=== PATIENT | female | born 2000 | race Caucasian/White ===

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

== ENCOUNTER 2019-03-15 09:36 | Day surgery (SDC) | payer SELFPAY ==
[~2019-03-15] VITALS: Ht 152.4 cm; Wt 41.4 kg
[2019-03-15] VITALS (8 sets, daily range): BP systolic 95–105; BP diastolic 56–69
[~2019-03-15 09:36] MED LIST: NITR-65 PO
[2019-03-15] MEDS ORDERED: ONDANSETRON 4 MG/2 ML (SDV) Z0FRAN IVP ONE (09:45)
[2019-03-15] MEDS ORDERED: NS IV 1000 ML 1,000 ML IV SCH ×2 (09:45→15:00)
[2019-03-15] MEDS ORDERED: fentaNYL INJECTION 100 MCG/2 ML AMP IVP ONE ×5 (09:45→17:30)
--- NOTE | 2019-03-15 09:47 | ED Abdominal Pain ---
General Stated Complaint: ABD PAIN Source of Information: Patient, Family History of Present Illness Date Seen by Provider: Mar 15, 2019 Time Seen by Provider: 09:46 Initial Comments This 18-year-old white female presents complaining of right lower quadrant pain that began last night. Patient had associated nausea without vomiting. Patient states pain is sharp in nature and severe in intensity. Patient has had ovarian cysts in the past but this is a different type of pain. Patient denies associated headache and stiff neck photophobia, cough shortness of breath or chest wall discomfort, pressure type chest pain or palpitations, diarrhea, dysuria frequency or flank pain. Her last period was 23 February. Allergies and Home Medications Allergies Coded Allergies: No Known Drug Allergies (Unverified , 08/30/18) Home Medications Nitrofurantoin Monohyd/M-Cryst 100 Mg Capsule, 100 MG PO BID Prescribed by: ANU RUVALCABA on 08/30/181944 Patient Home Medication List Home Medication List Reviewed: Yes Review of Systems Review of Systems Constitutional: no symptoms reported EENTM: No Symptoms Reported Respiratory: No Symptoms Reported; Denies Cough Cardiovascular: Denies Chest Pain Gastrointestinal: See HPI, Abdominal Pain, Nausea Genitourinary: Denies Frequency, Denies Flank Pain Musculoskeletal: No back pain Skin: No rash Psychiatric/Neurological: No Symptoms Reported Endocrine: No Symptoms Reported Hematologic/Lymphatic: No Symptoms Reported Past Enkabgm-Wxedwl-Hwgpes Hx Past Med/Social Hx: Reviewed Nursing Past Med/Soc Hx Patient Social History Drug of Choice: THC, XANAX Type Used: Cigarettes 2nd Hand Smoke Exposure: Yes Recent Foreign Travel: No Contact w/Someone Who Travel: No Recent Hopitalizations: No Immunizations Up To Date Tetanus Booster (TDap): Unknown Seasonal Allergies Seasonal Allergies: No Past Medical History Surgeries: No Respiratory: No Cardiac: No Neurological: No Genitourinary: No Gastrointestinal: No Musculoskeletal: No Endocrine: No HEENT: No Cancer: No Psychosocial: Yes ADD/ADHD, Anxiety, Bipolar, Depression Integumentary: No Blood Disorders: No Physical Exam Vital Signs Vital Signs - First Documented 03/15/19 09:38 Temp 97.8 Pulse 120 Resp 18 B/P (MAP) 115/74 Pulse Ox 100 O2 Delivery Room Air Capillary Refill : Height/Weight/BMI Height: 4'11.00" Weight: 95lbs. oz. 43.638071aw; 14.06 BMI Method:Stated General Appearance: WD/WN, mild distress HEENT: normal ENT inspection Neck: normal inspection Respiratory: chest non-tender, lungs clear, normal breath sounds, no respiratory distress Cardiovascular: regular rate, rhythm Gastrointestinal: abnormal bowel sounds, tenderness (right lower quadrant) Extremities: normal range of motion, non-tender, normal inspection Back: normal inspection Neurologic/Psychiatric: no motor/sensory deficits, alert, normal mood/affect, oriented x 3 Skin: normal color, warm/dry Progress/Results/Core Measures Results/Orders Lab Results Laboratory Tests Test 03/15/19 09:46 03/15/19 09:52 Range/Units Urine Color YELLOW Urine Clarity CLEAR Urine pH 5 5-9 Urine Specific [place] 1.025 H 1.016-1.022 Urine Protein 2+ H NEGATIVE Urine Glucose (UA) NEGATIVE NEGATIVE Urine Ketones 1+ H NEGATIVE Urine Nitrite NEGATIVE NEGATIVE Urine Bilirubin NEGATIVE NEGATIVE Urine Urobilinogen NORMAL NORMAL MG/DL Urine Leukocyte Esterase 1+ H NEGATIVE Urine RBC (Auto) NEGATIVE NEGATIVE Urine RBC RARE /HPF Urine WBC RARE /HPF Urine Squamous Epithelial Cells 0-2 /HPF Urine Crystals NONE /LPF Urine Bacteria NEGATIVE /HPF Urine Casts NONE /LPF Urine Mucus MODERATE H /LPF Urine Culture Indicated NO White Blood Count 14.2 H 4.3-11.0 10^3/uL Red Blood Count 4.45 4.35-5.85 10^6/uL Hemoglobin 13.2 11.5-16.0 G/DL Hematocrit 39 35-52 % Mean Corpuscular Volume 88 80-99 FL Mean Corpuscular Hemoglobin 30 25-34 PG Mean Corpuscular Hemoglobin Concent 34 32-36 G/DL Red Cell Distribution Width 13.2 10.0-14.5 % Platelet Count 331 130-400 10^3/uL Mean Platelet Volume 10.6 H 7.4-10.4 FL Neutrophils (%) (Auto) 86 H 42-75 % Lymphocytes (%) (Auto) 9 L 12-44 % Monocytes (%) (Auto) 5 0-12 % Eosinophils (%) (Auto) 0 0-10 % Basophils (%) (Auto) 0 0-10 % Neutrophils # (Auto) 12.2 H 1.8-7.8 X 10^3 Lymphocytes # (Auto) 1.3 1.0-4.0 X 10^3 Monocytes # (Auto) 0.7 0.0-1.0 X 10^3 Eosinophils # (Auto) 0.0 0.0-0.3 10^3/uL Basophils # (Auto) 0.0 0.0-0.1 10^3/uL Neutrophils % (Manual) 87 % Lymphocytes % (Manual) 9 % Monocytes % (Manual) 4 % Eosinophils % (Manual) 0 % Basophils % (Manual) 0 % Band Neutrophils 0 % Blood Morphology Comment NORMAL Sodium Level 139 135-145 MMOL/L Potassium Level 4.2 3.6-5.0 MMOL/L Chloride Level 106 98-107 MMOL/L Carbon Dioxide Level 25 21-32 MMOL/L Anion Gap 8 5-14 MMOL/L Blood Urea Nitrogen 14 7-18 MG/DL Creatinine 0.79 0.60-1.30 MG/DL Estimat Glomerular Filtration Rate > 60 BUN/Creatinine Ratio 18 Glucose Level 112 H 70-105 MG/DL Calcium Level 9.6 8.5-10.1 MG/DL Corrected Calcium 9.4 8.5-10.1 MG/DL Total Bilirubin 0.4 0.1-1.0 MG/DL Aspartate Amino Transf (AST/SGOT) 21 5-34 U/L Alanine Aminotransferase (ALT/SGPT) 25 0-55 U/L Alkaline Phosphatase 87 40-136 U/L Total Protein 7.2 6.4-8.2 GM/DL Albumin 4.2 3.2-4.5 GM/DL Lipase 13 8-78 U/L My Orders Orders - MAYRA GOSS MD Cbc With Automated Diff (03/15/19 09:43) Comprehensive Metabolic Panel (03/15/19 09:43) Lipase (03/15/19 09:43) Ua Culture If Indicated (03/15/19 09:43) Ct Abdomen/Pelvis Wo (03/15/19 09:43) Ns Iv 1000 Ml (Sodium Chloride 0.9%) (03/15/19 09:45) Ondansetron Injection (Zofran Injectio (03/15/19 09:45) Fentanyl Injection (Sublimaze Injection (03/15/19 09:45) Urine Bedside (03/15/19 09:47) Manual Differential (03/15/19 09:52) Us Appendix [id number] (03/15/19 10:58) Fentanyl Injection (Sublimaze Injection (03/15/19 11:00) Fentanyl Injection (Sublimaze Injection (03/15/19 13:30) Medications Given in ED Current Medications Medications Dose Ordered Sig/Thaddeus Route Start Time Stop Time Status Last Admin Dose Admin Fentanyl Citrate 50 mcg ONCE ONCE IVP 03/15/19 09:45 03/15/19 09:46 DC 03/15/19 09:55 50 MCG Fentanyl Citrate 50 mcg ONCE ONCE IVP 03/15/19 11:00 03/15/19 11:01 DC 03/15/19 11:13 50 MCG Ondansetron HCl 4 mg ONCE ONCE IVP 03/15/19 09:45 03/15/19 09:46 DC 03/15/19 09:56 4 MG Vital Signs/I&O 03/15/19 09:38 Temp 97.8 Pulse 120 Resp 18 B/P (MAP) 115/74 Pulse Ox 100 O2 Delivery Room Air Progress Progress Note : Time: 12:28 Progress Note This patient's workup in the emergency department demonstrated a CT of the abdomen and pelvis which was inconclusive for appendicitis. The ultrasound was similarly equivocal. Patient's white count was elevated at 14,000. The remainder the patient's laboratory evaluation was unremarkable. Next Dr. Dominique was consulted. He was kind enough to agree to evaluate the patient in the ED. 130 p.m. Patient continued to have abdominal pain and was given a third injection of 50 g of fentanyl IV. The patient was admitted on observation bed to Dr. Dominique service. Departure Communication (Admissions) Time/Spoke to Admitting Phy: 13:29 Dr. Doimnique Impression Primary Impression: Acute appendicitis Qualified Codes: K35.80 - Unspecified acute appendicitis Disposition: ADMITTED INPATIENT Condition: Unchanged Admissions Decision to Admit Reason: Admit from ER (General) Decision to Admit/Date: Mar 15, 2019 Time/Decision to Admit Time: 13:28 Departure-Patient Inst. Referrals: NO,LOCAL PHYSICIAN (PCP/Family) Primary Care Physician MAYRA GOSS MD Mar 15, 2019 09:47
[2019-03-15 09:57] LABS: BILIRUBIN,URINE NEGATIVE (NEGATIVE); CLARITY,URINE CLEAR; COLOR,URINE YELLOW; GLUCOSE, URINE (UA) NEGATIVE (NEGATIVE); KETONES,URINE 1+ (NEGATIVE); LEUKOCYTE ESTERASE ,URINE 1+ (NEGATIVE); NITRITE,URINE NEGATIVE (NEGATIVE); PH,URINE 5 (5-9); PROTEIN,URINE 2+ (NEGATIVE); UROBILINOGEN,URINE NORMAL (NORMAL)
[2019-03-15 10:00] LABS: BASOPHILS % (AUTO) 0 % (0-10); EOSINOPHILS % (AUTO) 0 % (0-10); HEMATOCRIT 39 % (35-52); HEMOGLOBIN 13.2 G/DL (11.5-16.0); LYMPHOCYTES # (AUTO) 1.3 X 10^3 (1.0-4.0); LYMPHOCYTES % (AUTO) 9 % (12-44); MEAN CORPUSCULAR HEMOGLOBIN 30 PG (25-34); MEAN CORPUSCULAR HGB CONC 34 G/DL (32-36); MEAN CORPUSCULAR VOLUME 88 FL (80-99); MEAN PLATELET VOLUME 10.6 FL (7.4-10.4); MONOCYTES # (AUTO) 0.7 X 10^3 (0.0-1.0); MONOCYTES % (AUTO) 5 % (0-12); NEUTROPHILS # (AUTO) 12.2 X 10^3 (1.8-7.8); NEUTROPHILS % (AUTO) 86 % (42-75); PLATELET COUNT 331 10^3/uL (130-400); RED CELL DISTRIBUTION WIDTH 13.2 % (10.0-14.5); WHITE BLOOD COUNT 14.2 10^3/uL (4.3-11.0)
[2019-03-15 10:07] LABS: BACTERIA,URINE NEGATIVE /HPF; RBC,URINE RARE /HPF; SQUAMOUS EPITHELIAL CELL,UR 0-2 /HPF; WBC,URINE RARE /HPF
[2019-03-15 10:21] LABS: ALANINE AMINOTRANSFERASE 25 U/L (0-55); ALBUMIN 4.2 GM/DL (3.2-4.5); ALKALINE PHOSPHATASE 87 U/L (40-136); BILIRUBIN,TOTAL 0.4 MG/DL (0.1-1.0); BUN/CREATININE RATIO 18; CALCIUM 9.6 MG/DL (8.5-10.1); CARBON DIOXIDE 25 MMOL/L (21-32); CHLORIDE 106 MMOL/L (98-107); CREATININE SERUM 0.79 MG/DL (0.60-1.30); GFR ESTIMATED > 60; GLUCOSE 112 MG/DL (70-105); LIPASE 13 U/L (8-78); POTASSIUM 4.2 MMOL/L (3.6-5.0); SODIUM 139 MMOL/L (135-145); TOTAL PROTEIN 7.2 GM/DL (6.4-8.2)
[2019-03-15 10:34] LABS: NEUTROPHILS % (MANUAL) 87 %
[2019-03-15 10:35] LABS: BAND NEUTROPHILS 0 %; BASOPHILS % (MANUAL) 0 %; EOSINOPHILS % (MANUAL) 0 %; LYMPHOCYTES % (MANUAL) 9 %; MONOCYTES % (MANUAL) 4 %; RBC MORPH NORMAL
--- NOTE | 2019-03-15 10:42 | Diagnostic Imaging Report ---
PROCEDURE: CT abdomen and pelvis without contrast. TECHNIQUE: Multiple contiguous axial images were obtained through the abdomen and pelvis without the use of intravenous contrast. Auto Exposure Controls were utilized during the CT exam to meet ALARA standards for radiation dose reduction. INDICATION: DATE: 03/15/2019 10:17 AM REASON FOR EXAM: Right lower quadrant pain starting 2 hours ago. Bloating COMPARISON: None. FINDINGS: The heart is unremarkable. The included lung bases are clear. The liver, spleen, pancreas, adrenal glands, and kidneys have a normal appearance. There is no pathologically enlarged mesenteric or retroperitoneal adenopathy. The bowel loops are nondilated. The appendix is not well visualized; however, no obvious signs of acute appendicitis. There is no free fluid or free air. The osseous structures are age-appropriate. Ureters and bladder are grossly normal. A small amount of free fluid is seen in the pelvis, likely physiologic. There is no free air, loculated collection, or adenopathy in the pelvis. IMPRESSION: 1. The appendix is somewhat obscured due to overlying bowel loops and ovarian tissue in the right adnexa. No indirect signs of acute appendicitis. Recommend close clinical followup and if symptoms are not resolved consider repeat imaging as indicated. Dictated by: Dictated on workstation # [id number]
--- NOTE | 2019-03-15 11:53 | Diagnostic Imaging Report ---
Indication: Abdominal pain Ultrasonography is performed in the right lower quadrant for evaluation of the appendix. The appendix was not definitely visualized and is likely obscured by overlying bowel. There is no evidence of focal inflammation or fluid collection. Impression: Limited ultrasonography of the abdomen reveals no definite direct evidence of appendicitis although the appendix is largely obscured by overlying bowel. Dictated by: Dictated on workstation # [id number]
--- NOTE | 2019-03-15 13:15 | NUR ---
Dr. Dominique here at this time to consult with pt.
[2019-03-15] MEDS ORDERED: NICOTINE 21 MG (NICODERM) PATCH TD ONE (14:15)
--- NOTE | 2019-03-15 14:40 | NUR ---
Pt arrived to Room 428 via wheelchair from the ED
[2019-03-15] MEDS ORDERED: ONDANSETRON 4 MG/2 ML (SDV) Z0FRAN IV PRN (15:00)
[2019-03-15] MEDS ORDERED: fentaNYL INJECTION 100 MCG/2 ML AMP IV PRN (15:00)
[2019-03-15] MEDS ORDERED: CATHETER FLUSH 10 ML SYR IV PRN (15:15)
--- NOTE | 2019-03-15 15:43 | Consultation - Surgery ---
History of Present Illness History of Present Illness Patient Consulted On(ave/time) 03/15/19 15:37 Time Seen by Provider: 13:02 History of Present Illness Surgery asked to consult regarding RLQ pain, possible appendicitis. HPI per ED: This 18-year-old white female presents complaining of right lower quadrant pain that began last night. Patient had associated nausea without vomiting. Patient states pain is sharp in nature and severe in intensity. Patient has had ovarian cysts in the past but this is a different type of pain. Patient denies associated headache and stiff neck photophobia, cough shortness of breath or chest wall discomfort, pressure type chest pain or palpitations, diarrhea, dysuria frequency or flank pain. Her last period was 23 February. When I spoke to the pt in the ER she rated her pain as 10 out of 10; worse with any type of movement, even the car ride over caused pain. She was in the ER bed, curled up in position because that helped with the pain. It is a sharp, stabbing pain which does not really radiate anywhere. Allergies and Home Medications Allergies Coded Allergies: No Known Drug Allergies (Unverified , 08/30/18) Patient Home Medication List Home Medication List Reviewed: Yes Past Ruaoiqb-Nrihjl-Xklydx Hx Patient Social History Alcohol Use: Occasionally Uses Drug of Choice: THC, XANAX Smoking Status: Current Everyday Smoker Type Used: Cigarettes 2nd Hand Smoke Exposure: Yes Recent Foreign Travel: No Contact w/Someone Who Travel: No Recent Infectious Disease Expo: No Recent Hopitalizations: No Immunizations Up To Date Tetanus Booster (TDap): Unknown Seasonal Allergies Seasonal Allergies: No Surgeries History of Surgeries: No Respiratory History of Respiratory Disorde: No Cardiovascular History of Cardiac Disorders: No Neurological History of Neurological Disord: No Reproductive System : No Hx Reproductive Disorders: No Sexually Transmitted Disease: No Genitourinary History of Genitourinary Disor: No Gastrointestinal History of Gastrointestinal Di: No Musculoskeletal History of Musculoskeletal Dis: No Endocrine History of Endocrine Disorders: No HEENT History of HEENT Disorders: No Cancer History of Cancer: No Psychosocial History of Psychiatric Problem: Yes Behavioral Health Disorders: ADD/ADHD, Anxiety, Bipolar, Depression Integumentary History of Skin or Integumenta: No Blood Transfusions History of Blood Disorders: No Family Medical History Significant Family History: Cancer (Grandfather had Lung CA), Diabetes (Mother and Father), Hypertension (Father) Review of Systems-General Constitutional: chills, diaphoresis, malaise, weakness EENTM: No blurred vision, No double vision, No mouth pain, No mouth swelling, No throat swelling Respiratory: No cough, No dyspnea on exertion, No hemoptysis, No short of breath Cardiovascular: No chest pain, No edema, No palpitations Gastrointestinal: abdominal pain (RLQ); No jaundice; loss of appetite; No melena; nausea, vomiting Genitourinary: No dysuria, No frequency, No hematuria Musculoskeletal: No joint pain, No joint swelling, No muscle pain, No muscle stiffness Skin: No change in color, No change in hair/nails Psychiatric/Neurological: Anxiety, Depressed; Denies Seizure, Denies Tremors Other pt denies any hx of abnormal bleeding or bruising, no heat or cold intolerance Physical Exam-General Problems Physical Exam Vital Signs Vital Signs - First Documented 03/15/19 09:38 Temp 97.8 Pulse 120 Resp 18 B/P (MAP) 115/74 Pulse Ox 100 O2 Delivery Room Air Capillary Refill : General Appearance: WD/WN, moderate distress, thin Eyes: Bilateral Eye PERRL, Bilateral Eye EOMI HEENT: pharynx normal; No scleral icterus (R), No scleral icterus (L), No pale conjunctivae (R); other (pt has cold sore on upper lip) Neck: non-tender, full range of motion, supple, normal inspection Respiratory: chest non-tender, lungs clear, normal breath sounds, no respiratory distress, no accessory muscle use Cardiovascular: no murmur, tachycardia Gastrointestinal: soft, no organomegaly, no pulsatile mass, tenderness (RLQ) Back: no CVA tenderness, no vertebral tenderness Extremities: normal range of motion, non-tender, normal inspection, no pedal edema, no calf tenderness Neurologic/Psychiatric: formulation technician II-XII nml as tested, no motor/sensory deficits, alert, normal mood/affect, oriented x 3 Skin: normal color, warm/dry Lymphatic: no adenopathy (neck, axilla or groin) Data Review Labs Laboratory Tests 03/15/19 09:46: Urine Color YELLOW, Urine Clarity CLEAR, Urine pH 5, Urine Specific [place] 1.025H, Urine Protein 2+H, Urine Glucose (UA) NEGATIVE, Urine Ketones 1+H, Urine Nitrite NEGATIVE, Urine Bilirubin NEGATIVE, Urine Urobilinogen NORMAL, Urine Leukocyte Esterase 1+H, Urine RBC (Auto) NEGATIVE, Urine RBC RARE, Urine WBC RARE, Urine Squamous Epithelial Cells 0-2, Urine Crystals NONE, Urine Bacteria NEGATIVE, Urine Casts NONE, Urine Mucus MODERATEH, Urine Culture Indicated NO 03/15/19 09:52: White Blood Count 14.2H, Red Blood Count 4.45, Hemoglobin 13.2, Hematocrit 39, Mean Corpuscular Volume 88, Mean Corpuscular Hemoglobin 30, Mean Corpuscular Hemoglobin Concent 34, Red Cell Distribution Width 13.2, Platelet Count 331, Mean Platelet Volume 10.6H, Neutrophils (%) (Auto) 86H, Lymphocytes (%) (Auto) 9L, Monocytes (%) (Auto) 5, Eosinophils (%) (Auto) 0, Basophils (%) (Auto) 0, Neutrophils # (Auto) 12.2H, Lymphocytes # (Auto) 1.3, Monocytes # (Auto) 0.7, Eosinophils # (Auto) 0.0, Basophils # (Auto) 0.0, Neutrophils % (Manual) 87, Lymphocytes % (Manual) 9, Monocytes % (Manual) 4, Eosinophils % (Manual) 0, Basophils % (Manual) 0, Band Neutrophils 0, Blood Morphology Comment NORMAL, Sodium Level 139, Potassium Level 4.2, Chloride Level 106, Carbon Dioxide Level 25, Anion Gap 8, Blood Urea Nitrogen 14, Creatinine 0.79, Estimat Glomerular Filtration Rate > 60, BUN/Creatinine Ratio 18, Glucose Level 112H, Calcium Level 9.6, Corrected Calcium 9.4, Total Bilirubin 0.4, Aspartate Amino Transf (AST/SGOT) 21, Alanine Aminotransferase (ALT/SGPT) 25, Alkaline Phosphatase 87, Total Protein 7.2, Albumin 4.2, Lipase 13 Assessment/Plan Assessment/Plan Assessment/Plan RLQ pain r/o appendicitis Pt was admitted for observation, pain control, IV fluids, anti-emetics and possible IV ABX. I looked at her CT and went over the report; unfortunately she is so skinny that the appendix can not be found. She does have an elevated WBC, but she was also treated for a cough about a week ago. I discussed the possible diagnoses with the pt; constipation, mesenteric lymphadenitis and possibly appendicitis. I talked about her options 1) observing over night and monitoring to see if pain and wbc improve or 2) Laparoscopic Appendectomy (knowing that it might be a normal appendix and surgery carries its own risks). She cannot have surgery until 4pm anyway because she ate at 8am. I will talk to her again to see what her decision will be. We did discuss risks and complications of surgery; not limited to pain, bleeding, infection, scar, damage to bowel and need for further procedure. All questions answered to her satisfaction. DARREN HAMILTON DO Mar 15, 2019 15:43
[2019-03-15] MEDS ORDERED: BUP/EPI 0.5% 1:200,000 (SENSORCAINE) 30 ML VIAL ONE (15:54)
[2019-03-15] MEDS ORDERED: ceFAZolin INJECTION 1,000 MG in WATER (STERILE) FOR INJECTION 10 ML IV NR (16:00)
[2019-03-15] MEDS ORDERED: fentaNYL INJECTION 100 MCG/2 ML AMP ONE (16:06)
[2019-03-15] MEDS ORDERED: MIDAZOLAM 2 MG/2 ML (VERSED) VIAL ONE (16:08)
--- NOTE | 2019-03-15 16:25 | NUR ---
Pt to OR via bed, consent obtained.
[2019-03-15] MEDS: LACTATED RINGERS 1,000 ML IV PRN ×2 (16:29→17:08)
[2019-03-15] MEDS ORDERED: ceFAZolin INJECTION 1,000 MG ONE (16:38)
[2019-03-15] MEDS ORDERED: morphine INJ 10 MG/ML 1ML (SYR OR VIAL) ONE (16:46)
[2019-03-15] MEDS ORDERED: ROCURONIUM 10 MG/ML 5 ML SYRINGE IV ONE (17:10)
[2019-03-15] MEDS ORDERED: LIDOCAINE PF 2% 5 ML (XYLOCAINE) VIAL ONE (17:10)
[2019-03-15] MEDS ORDERED: NEOSTIGMINE 3 MG/3 ML VIAL ONE (17:10)
[2019-03-15] MEDS ORDERED: proPOfol 200 MG/20 ML (DIPRIVAN) VIAL IV ONE (17:10)
[2019-03-15] MEDS ORDERED: GLYCOPYRROLATE 0.2 MG/ML (ROBINUL) 2 ML VIAL ONE (17:10)
[2019-03-15] MEDS ORDERED: ONDANSETRON 4 MG/2 ML (SDV) Z0FRAN ONE (17:10)
[2019-03-15] MEDS ORDERED: DEXAMETHASONE 10 MG/ML (DECADRON) 1 ML VIAL ONE (17:10)
[2019-03-15] MEDS ORDERED: SEVOFLURANE (ULTANE) 15 ML INHAL SOLN ONE ×3 (17:11)
[2019-03-15] MEDS ORDERED: morphine INJ 10 MG/ML 1ML (SYR OR VIAL) IVP ONE (17:30)
[2019-03-15] MEDS ORDERED: MEPERIDINE (DEMEROL) INJ 50 MG/ML IVP ONE (17:30)
[2019-03-15] MEDS ORDERED: ONDANSETRON 4 MG/2 ML (SDV) Z0FRAN IVP PRN (17:30)
--- NOTE | 2019-03-15 18:35 | NUR ---
Pt returned to room 428 via bed from PACU, pt sleepy but awakens to name easily. Lap sites x 3 on abdomen with durabond closure, ice pack to abdomen. Report received from Kimmie NG
--- NOTE | 2019-03-15 19:32 | Progress Note-Post Operative ---
Post-Operative Progess Note Surgeon (s)/Community Theater Actor (s) Surgeon DARREN HAMILTON DO Community Theater Actor: none Pre-Operative Diagnosis RLQ pain r/o appy Post-Operative Diagnosis Acute appy Procedure & Operative Findings Date of Procedure 03/15/19 Procedure Performed/Findings Lap Appy Anesthesia Type GET Estimated Blood Loss Estimated blood loss (mL): scant Specimens/Packing Specimens Removed DARREN Webster DO Mar 15, 2019 19:32
[2019-03-15] MEDS ORDERED: ACHD5005 PO (19:36)
--- NOTE | 2019-03-15 19:38 | Discharge Inst-Surgical ---
Discharge Inst-Surgical Depart Medication/Instructions New, Converted or Re-Newed RX: RX Given to Pt/Family Patient Instructions Follow up Appt: Make appointment for 1 week. [phone] Instructions: No lifting greater than 20 pounds. No strenuous activity. May shower in 24 hours, no tub bath or soaking. Use incentive spirometer at home as directed. No Smoking Skin/Wound Care: May remove bandages in am. You need to leave the Dermabond on incision it will fall off on it's own. Symptoms to Report: Appetite Changes, Extremity Discoloration, Numbness/Tingling, Swelling Increased, Bleeding Excessive, Eyesight Changes, Pain Increased, Urine Color Change, Constipation(Persistent), Fever over 101 degree F, Pain/Pressure in chest, Urinating Difficulty, Cough Up/Vomit Blood, Heart Beat Irreg/Pounding, Pain/Pressure in jaw, Cramps in feet or legs, Lightheadedness, Pain/Pressure in shoulder, Diarrhea(Persistent), Memory Changes Suddenly, Questions/Concerns, Weight gain consecutive days, Dizziness/Fainting, Nausea/Vomiting, Shortness of Breath, Weight gain over 2 pounds If questions or concerns contact your physician Or seek help at emergency department. Activity Activity as Tolerated: Yes Activity Instructions: Avoid Stress to Incision Driving Instructions: No Driving/Refer to Dr. Guillory Discharge Diet: No Restrictions Diet After 24 Hours: Clear Liquid if Nauseous If Any Problems/Questions/Issu: Contact Your Physician, Go to Emergency Room Skin/Wound Care Infection Signs and Symptoms: Increased Redness, Foul Odor of Wound, Increased Drainage, Skin Itchy or Has a Rash, Increased Swelling, Temperature Above 101 F Wound Care Comment: heating pad to shoulder or neck for pain Bathing Instructions: Shower Stitches/Lisa/Dermabond Dis: Dermabond Ice Pack: Ice On and Off Site DARREN HAMILTON DO Mar 15, 2019 19:38
[2019-03-16 00:12] VITALS: BP 90/54
--- NOTE | 2019-03-16 02:44 | OPERATIVE REPORT ---
DATE OF SERVICE: PREOPERATIVE DIAGNOSIS: Right lower quadrant pain, rule out appendicitis. POSTOPERATIVE DIAGNOSES: 1. Acute appendicitis. 2. Small right indirect inguinal hernia. 3. Bilateral ovarian cysts. PROCEDURE: Laparoscopic appendectomy. SURGEON: Eric Dominique, HORSE AND WAGON DRIVER: None. ANESTHESIA: General endotracheal tube. SPECIMEN: Appendix. BLOOD LOSS: Scant. FLUIDS: Per anesthesia. POSTOPERATIVE CONDITION: Stable. INDICATION FOR PROCEDURE: The patient is a 18-year-old female who came in with some right lower quadrant pain for one day, but she has been feeling bad for a couple of days, elevated white count. CAT scan indeterminate whether she had appendicitis. FINDINGS: The patient had acute appendicitis with a little bit of fibrous material surrounding appendix and some purulent fluid in the pelvis. PROCEDURE NOTE: After informed consent was obtained, the patient was brought to the operating room, placed on the table in supine position. She was sterilely prepped and draped in normal fashion. Local lidocaine was used to infiltrate the skin below the umbilicus and made an incision with #11 blade, carried down through the skin and subcutaneous tissue, deepened down to subcutaneous tissue with Bovie electrocautery down to the fascia. Fascia incised with Bovie electrocautery, bluntly entered the abdomen, swept the finger around, placed 0 Vicryl buuipn-[id number] suture, then placed 11 mm trocar port under direct visualization. Created pneumoperitoneum and then placed 2 more ports in normal fashion using local lidocaine, 11 blade for the stab incision and Versed system, all done under direct visualization, one suprapubically and one in left lower quadrant. The patient then placed slightly Trendelenburg and rotated to the left, started moving cecum out of the way and could see a firm appendix and some fibrinous material. Then, we moved up looked like it was a little bit more purulent or fibrinous material around it. Able to grasp the mesoappendix and then start coming across this with a LigaSure, clamping, coagulating and transecting in this fashion coming through the mesoappendix and coming through and ligating the appendiceal artery. Once the appendix was just attached to the cecum, then switch to 5 mm camera, brought Endo-GIULIANA and clamped across the base of appendix, clamped and fired the Endo-GIULIANA thereby transecting the appendix, removed this and placed a bag in the abdomen, placed the appendix in the bag and then removed this through the infraumbilical port. Looked in the pelvis, saw small right inguinal hernia. There was also some purulent fluid in the pelvis. This was suctioned out. I then copiously irrigated and suctioned out again. I could see bilateral ovarian cysts, took picture of this, looked around, did not see any other obvious pathology. Staple line looked good, took a picture of this and then at this point, placed the patient supine, removed all ports under direct visualization, allowed pneumoperitoneum to escape. I closed the infraumbilical incision, closing the fascia with 0 Vicryl suture previously placed. Copiously irrigated all incisions with normal saline. I closed the 2 small 5 mm incisions with a single interrupted 4-0 undyed Monocryl subcuticular stitch. I closed the infraumbilical incision with 3 interrupted 4-0 undyed Monocryl subcuticular stitches. Area was cleaned and dried. Dermabond placed as well as bandage. The patient then transferred to recovery room in stable condition. Sponge, instrument and needle count correct at the end of the case. Job ID: [id number] DocumentID: [id number] Dictated Date: 03/15/2019 19:15:48 Car Supplier Date: 03/16/2019 02:44:22 Dictated By: DO SHARATH MARTINEZ
[2019-03-16 04:00] VITALS: BP 94/60
[2019-03-16 08:00] VITALS: BP 88/84
--- NOTE | 2019-03-16 09:45 | Anesthesia-General Post-Op ---
General Patient Condition Mental Status/LOC: Same as Preop Cardiovascular: Satisfactory Nausea/Vomiting: Absent Respiratory: Satisfactory Pain: Controlled Complications: Absent Post Op Complications Complications None Follow Up Care/Instructions Patient Instructions None needed. Anesthesia/Patient Condition Patient Condition Patient is doing well, no complaints, stable vital signs, no apparent adverse anesthesia problems. No complications reported per nursing. D/C home per [facility] [place] Criteria: Yes AMELIE VASQUEZ CRNA Mar 16, 2019 09:45
[2019-03-16 11:56] VITALS: BP 90/55
[2019-03-16 12:30] VITALS: BP 90/55
== END 2019-03-16 12:50 | disposition home or self-care (01) ==
LOC: ER 09:36 → EDUNIT# 09:36 → 4TH 14:09 → UNDOADMOB 14:09 → SDC 14:09 → 4TH 14:09 → UNDODISOB 03-16 12:50 → SDC 03-16 12:50
PROVIDERS: ATTEND Surgery
DX: K35.80 Unspecified acute appendicitis (principal); K40.90 Unilateral inguinal hernia, without obstruction or gangrene, not specified as recurrent; N83.202 Unspecified ovarian cyst, left side; N83.201 Unspecified ovarian cyst, right side; F17.210 Nicotine dependence, cigarettes, uncomplicated; F41.9 Anxiety disorder, unspecified; F90.9 Attention-deficit hyperactivity disorder, unspecified type; F31.9 Bipolar disorder, unspecified; D72.829 Elevated white blood cell count, unspecified; Z79.899 Other long term (current) drug therapy; Z79.891 Long term (current) use of opiate analgesic; Z80.1 Family history of malignant neoplasm of trachea, bronchus and lung; Z83.3 Family history of diabetes mellitus; Z82.49 Family history of ischemic heart disease and other diseases of the circulatory system
CPT/HCPCS: 36415; 74176; 76705; 80053; 81000; 83690; 84703; 85007; 85027; 87081; 88304; 96361; 96374; 96375; 96376

== ENCOUNTER 2020-04-21 16:57 | Emergency (ER) | payer MEDICAID ==
[~2020-04-21] VITALS: Ht 152.4 cm; Wt 47.6 kg
[~2020-04-21 16:57] MED LIST changes: +ACHD5005 PO
[2020-04-21 17:08] VITALS: BP 117/70
--- NOTE | 2020-04-21 17:38 | ED GI ---
General Chief Complaint: Abdominal/GI Problems Stated Complaint: ABD PAIN 11 WKS PREG Nursing Triage Note: PT AMB TO TRIAGE WITH COMPLAINT OF ABD PAIN THAT STARTED THIS MORNING. STATES IS 11 WEEKS . DENIES SPOTTING OR BLEEDING. STATES IS CURRENTLY TAKING AMOXICILLIN FOR A UTI. PT WAS ALSO RECENTLY TREATED FOR TRICH. Sepsis Screen: No Definite Risk History of Present Illness Date Seen by Provider: Apr 21, 2020 Time Seen by Provider: 17:10 Initial Comments 20-year-old female presents for abdominal pain that started this morning. She states after passing stool this afternoon it did improve slightly. She is approximately 11 weeks , she had a normal ultrasound with her OB doctor on March 28. She denies any vaginal discharge or spotting. She is being treated for Trichomonas with MetroGel. Timing/Duration: 12 Hours Location: Epigastric Radiation: No Radiation Associated Symptoms: Denies Symptoms; No Fever/Chills, No Headache, No Heartburn, No Nausea/Vomiting Allergies and Home Medications Allergies Coded Allergies: No Known Drug Allergies (Unverified , 08/30/18) Home Medications Hydrocodone Bit/Acetaminophen 1 Tab Tab, 1 TAB PO Q6H PRN for PAIN-MODERATE Prescribed by: DARREN HAMILTON on 03/15/191935 Patient Home Medication List Home Medication List Reviewed: Yes Review of Systems Review of Systems Constitutional: no symptoms reported, see HPI Gastrointestinal: See HPI, Abdominal Pain; Denies Nausea, Denies Poor Appetite Genitourinary: No Symptoms Reported, See HPI; Denies Discharge, Denies Hematuria All Other Systems Reviewed Negative Unless Noted: Yes Past Iatdrro-Ntfwck-Oqytwx Hx Past Med/Social Hx: Reviewed and Corrections made Patient Social History Alcohol Use: Denies Use Recreational Drug Use: No Drug of Choice: THC, XANAX Smoking Status: Current Everyday Smoker Type Used: Cigarettes 2nd Hand Smoke Exposure: Yes Recent Foreign Travel: No Contact w/Someone Who Travel: No Recent Infectious Disease Expo: No Recent Hopitalizations: No Immunizations Up To Date Tetanus Booster (TDap): Unknown Seasonal Allergies Seasonal Allergies: No Past Medical History Surgeries: No Respiratory: No Cardiac: No Neurological: No : Yes Last Menstrual Period: Feb 02, 2020 Hx : 2 Hx Para: 0 Hx Total # of Abortions (Sp): 1 Reproductive Disorders: No Sexually Transmitted Disease: No Genitourinary: No Gastrointestinal: No Musculoskeletal: No Endocrine: No HEENT: No Cancer: No Psychosocial: Yes ADD/ADHD, Anxiety, Bipolar, Depression Integumentary: No Blood Disorders: No Family Medical History Cancer, Diabetes, Hypertension Physical Exam Vital Signs Vital Signs - First Documented 04/21/20 17:08 Pulse 82 Resp 15 B/P (MAP) 117/70 (86) Pulse Ox 100 O2 Delivery Room Air Capillary Refill : Less Than 3 Seconds Height/Weight/BMI Height: 5'0" Weight: 91lbs. 5.0oz. 41.761658yg; 20.00 BMI Method:Stated General Appearance: WD/WN, no apparent distress Respiratory: chest non-tender, lungs clear, normal breath sounds Cardiovascular: normal peripheral pulses, regular rate, rhythm Gastrointestinal: normal bowel sounds, non tender, soft; No rebound, No tenderness Extremities: normal range of motion, non-tender, normal inspection Neurologic/Psychiatric: no motor/sensory deficits, alert, normal mood/affect, oriented x 3 Skin: normal color, warm/dry Progress/Results/Core Measures Results/Orders Lab Results Laboratory Tests Test 04/21/20 17:39 Range/Units Urine Color YELLOW Urine Clarity CLEAR Urine pH 6.0 5-9 Urine Specific [place] 1.020 1.016-1.022 Urine Protein NEGATIVE NEGATIVE Urine Glucose (UA) NEGATIVE NEGATIVE Urine Ketones NEGATIVE NEGATIVE Urine Nitrite NEGATIVE NEGATIVE Urine Bilirubin NEGATIVE NEGATIVE Urine Urobilinogen 0.2 < = 1.0 MG/DL Urine Leukocyte Esterase 1+ H NEGATIVE Urine RBC (Auto) NEGATIVE NEGATIVE Urine RBC NONE /HPF Urine WBC 10-25 H /HPF Urine Squamous Epithelial Cells 2-5 /HPF Urine Crystals NONE /LPF Urine Bacteria TRACE /HPF Urine Casts NONE /LPF Urine Mucus NEGATIVE /LPF Urine Trichomonas FEW H /HPF Urine Culture Indicated YES My Orders Orders - JORGE BARRIOS Urine Bedside (04/21/20 17:11) Ua Culture If Indicated (04/21/20 17:11) Urine Culture (04/21/20 17:39) Vital Signs/I&O 04/21/20 17:08 Pulse 82 Resp 15 B/P (MAP) 117/70 (86) Pulse Ox 100 O2 Delivery Room Air Blood Pressure Mean: 86 Departure Impression Primary Impression: Epigastric abdominal pain Additional Impressions: First trimester Trichomonal vaginitis during Qualified Codes: O23.591 - Infection of other part of genital tract in , first trimester; A59.01 - Trichomonal vulvovaginitis Disposition: HOME, SELF-CARE Condition: Improved Departure-Patient Inst. Decision time for Depature: 18:05 Referrals: NO,LOCAL PHYSICIAN (PCP/Family) Primary Care Physician Patient Instructions: Stomach Pain in Early , Trichomoniasis (DC) Add. Discharge Instructions: Increase water intake. Continue to take your vitamin. Continue to use the MetroGel for Trichomonas. Follow-up with your SCALE MECHANIC if symptoms are not improving or worsen. Call the Hospital and have your PIPE LINER through the weekend, if needed. You may take Tylenol 650 mg every 6-8 hours as needed for pain. Return to the emergency department for new, urgent health care needs. All discharge instructions reviewed with patient and/or family. Voiced under standing. Work/School Note: Work Release Form Date Seen in the Emergency Department: Apr 21, 2020 Return to Work: Apr 23, 2020 Restrictions: No Restrictions JORGE BARRIOS Apr 21, 2020 17:38
[2020-04-21 18:03] LABS: BILIRUBIN,URINE NEGATIVE (NEGATIVE); CLARITY,URINE CLEAR; COLOR,URINE YELLOW; GLUCOSE, URINE (UA) NEGATIVE (NEGATIVE); KETONES,URINE NEGATIVE (NEGATIVE); LEUKOCYTE ESTERASE ,URINE 1+ (NEGATIVE); NITRITE,URINE NEGATIVE (NEGATIVE); PROTEIN,URINE NEGATIVE (NEGATIVE)
[2020-04-21 18:04] LABS: BACTERIA,URINE TRACE /HPF; TRICHOMONAS,URINE FEW /HPF
== END 2020-04-21 18:32 | disposition home or self-care (01) ==
LOC: EDUNIT# 16:57 → ER 16:59
DX: O98.311 Other infections with a predominantly sexual mode of transmission complicating pregnancy, first trimester (principal); A59.01 Trichomonal vulvovaginitis; O99.331 Smoking (tobacco) complicating pregnancy, first trimester; F17.210 Nicotine dependence, cigarettes, uncomplicated; Z3A.11 11 weeks gestation of pregnancy; Z82.49 Family history of ischemic heart disease and other diseases of the circulatory system
CPT/HCPCS: 81000; 84703; 87088; 99282

== ENCOUNTER 2020-11-01 06:14 | Inpatient (IN) | payer MEDICAID ==
[2020-11-01] VITALS (60 sets, daily range): BP systolic 96–138; BP diastolic 9–87
[~2020-11-01] VITALS: Ht 152.4 cm; Wt 63.6 kg
[2020-11-01] MEDS ORDERED: MINERAL OIL CONCENTRATE 99.9% 15 ML UDC TOP PRN (07:00)
[2020-11-01] MEDS ORDERED: AMPICILLIN FOR IV USE 2,000 MG in WATER (STERILE) FOR INJECTION 14.8 ML IV SCH (07:00)
[2020-11-01] MEDS: D5 LR IV SOLUTION 1,000 ML IV SCH ×2 (07:39→16:15)
[2020-11-01] MEDS ORDERED: OXYTOCIN PRE-MIX DRIP 500 ML IV ONE (07:52)
[2020-11-01 08:04] LABS: BASOPHILS # (AUTO) 0.1 10^3/uL (0.0-0.1); BASOPHILS % (AUTO) 1 % (0-10); EOSINOPHILS # (AUTO) 0.2 10^3/uL (0.0-0.3); EOSINOPHILS % (AUTO) 1 % (0-10); HEMATOCRIT 27 % (35-52); HEMOGLOBIN 8.5 g/dL (11.5-16.0); LYMPHOCYTES # (AUTO) 2.1 10^3/uL (1.0-4.0); LYMPHOCYTES % (AUTO) 15 % (12-44); MEAN CORPUSCULAR HEMOGLOBIN 24 pg (25-34); MEAN CORPUSCULAR HGB CONC 31 g/dL (32-36); MEAN CORPUSCULAR VOLUME 77 fL (80-99); MEAN PLATELET VOLUME 12.1 fL (9.0-12.2); MONOCYTES % (AUTO) 7 % (0-12); NEUTROPHILS # (AUTO) 10.8 10^3/uL (1.8-7.8); NEUTROPHILS % (AUTO) 76 % (42-75); PLATELET COUNT 263 10^3/uL (130-400); WHITE BLOOD COUNT 14.2 10^3/uL (4.3-11.0)
[2020-11-01] MEDS ORDERED: PNV11TAB5 PO (08:11)
--- NOTE | 2020-11-01 08:12 | History & Physical-OB/GYN ---
NOONANTOAN Reyes MED STUDENT 11/01/20 0812: OB - Chief Complaint & HPI Date/Time Date of Admission: Date of Admission: Nov 01, 2020 at 06:14 Chief Complaint/History OB-Reason for Admission/Chief: Induction of Labor Hx : 2 Hx Para: 0 Hx Last Menstrual Period: 02/02/2020 Expected Date of Delivery: Oct 30, 2020 Gestational Age in Weeks: 39 Gestational Age in Days: 0 Admission Nurse Assessment Rev: Yes Allergies and Home Medications Allergies Coded Allergies: latex (Verified Allergy, Mild, rash, 11/01/20) diphenhydramine (Verified Allergy, Unknown, Rash, 11/01/20) FROM THE DYE, CAN TAKE BENADRYL WITHOUT DYE Home Medications Qra146/FA/Omega3/Dha/Fish Oil 1 Each Tab.chew, 1 EACH PO DAILY, (Reported) Patient Home Medication List Home Medication List Reviewed: Yes OB - History Hx of Present Care: Yes Ultrasounds: Normal mid trimester US Obstetrical Complications: None Information Induced Hypertension: No Maternal Gestational Diabetes: No Hemorrhage: No Obstetrical History Hx : 2 Hx Para: 0 Hx Total # of Abortions (Spona: 1 Hx Multiple Gestation: No Hx Ectopic : No Hx Stillbirth: No Hx Complication: No Hx Induced Hypertens: No Hx Maternal Gestational Diabet: No Hx Hemorrhage: No Delivery History Hx Dystocia: No Hx Forceps Assisted Delivery: No Hx Vacuum Extraction Assisted: No Hx Placenta Abnormality: No Hx Distress: No Hx Large For Gestational Age I: No Hx Small for Gestational Age I: No Hx Section: No Hx Vaginal Delivery Post C-Sec: No Hx Blood Disorders: No Adverse Rxn to Tranfusion: No Patient Past Medical History PCOS Asthma- mild intermittent Social History/Family History Alcohol Use: Denies Use Recreational Drug Use: No Smoking Cessation: Current every day smoker 2nd Hand Smoke Exposure: Yes Immunizations Tetanus Booster (TDap): Less than 5yrs Date of Influenza Vaccine: Aug 04, 2020 Rubella: immune RPR/VDRL: Negative GBS Status: Positive HBsAG: Negative OB - Admission Exam Physical Exam HEENT: NCAT Abdomen: Gravid Cervical Dilatation: 3cm Effacement: 75% Station: -1 Membranes: Intact Heart Rate: 140's Accelerations: Accelerations Present Short Term Variability: Present Senior Care Variability: Average (6-25) Contractions on Admission: < 5 Minutes Apart (adenike in irregular pattern with contractions every 2-6 minutes ) Intensity: Mild OB - Assessment/Plan/Diagnosis Assessment Assessment: induction of labor Admission Dx induction of labor Admission Status: Inpatient Order (span 2 midnights) Reason for Inpatient Admission: Induction of labor Plan Plan: Induction Induction Method: per Pitocin Protocol MANUELITO RODRIGUES MD 11/01/20 0914: OB - Chief Complaint & HPI Date/Time Date seen by a Provider: Nov 01, 2020 Time Seen by a Provider: 07:30 Allergies and Home Medications Allergies Coded Allergies: latex (Verified Allergy, Mild, rash, 11/01/20) diphenhydramine (Verified Allergy, Unknown, Rash, 11/01/20) FROM THE DYE, CAN TAKE BENADRYL WITHOUT DYE Home Medications Xyc751/FA/Omega3/Dha/Fish Oil 1 Each Tab.chew, 1 EACH PO DAILY, (Reported) Supervisory-Addendum Brief Verification & Attestation Participated in pt care: history, MDM, physical Personally performed: history, MDM Care discussed with: Medical Student Procedures: n/a I personally saw and obtained history on this patient today and agree with student documentation. Cervical exam per nurse. TOAN NOONAN STUDENT Nov 01, 2020 08:12 MANUELITO RODRIGUES MD Nov 01, 2020 09:14
[2020-11-01] MEDS: OXYTOCIN PRE-MIX DRIP 500 ML IV SCH ×2 (08:24→18:24)
[2020-11-01 08:33] LABS: ANISOCYTOSIS SLIGHT; BAND NEUTROPHILS 2 %; BASOPHILS % (MANUAL) 0 %; EOSINOPHILS % (MANUAL) 1 %; LYMPHOCYTES % (MANUAL) 15 %; MONOCYTES % (MANUAL) 8 %; NEUTROPHILS % (MANUAL) 74 %
[2020-11-01 08:34] LABS: MICROCYTOSIS SLIGHT
[2020-11-01] MEDS ORDERED: fentaNYL 2 mcg/ml BUPIVA 0.125 100 ML ONE (08:50)
[2020-11-01] MEDS ORDERED: BUPIVACAINE 0.25% 30 ML (SENSORCAINE) VIAL ONE ×2 (08:58→16:06)
[2020-11-01] MEDS ORDERED: fentaNYL INJECTION 100 MCG/2 ML AMP ONE (08:58)
[2020-11-01] MEDS ORDERED: LACTATED RINGERS 1,000 ML IV ONE (09:15)
[2020-11-01] MEDS ORDERED: NALOXONE 0.4 MG/ML 1 ML (NARCAN) VIAL IV PRN (09:15)
[2020-11-01] MEDS ORDERED: CATHETER FLUSH 10 ML SYR IV PRN (09:15)
[2020-11-01] MEDS ORDERED: fentaNYL 2 mcg/ml BUPIVA 0.125 100 ML IV SCH (09:15)
[2020-11-01] MEDS: AMPICILLIN FOR IV USE 1,000 MG in WATER (STERILE) FOR INJECTION 7.4 ML IV SCH ×2 (11:40→16:21)
[2020-11-01] MEDS ORDERED: LIDOCAINE/EPI 2% 1:200,00 (XYLOCAINE) 10 ML VIAL ONE ×2 (11:45→17:18)
--- NOTE | 2020-11-01 12:33 | Labor Progress Note ---
Labor Progress Note Labor Progress Note Date Seen by Provider: Nov 01, 2020 Time Seen by Provider: 12:20 Subjective: Pt denies complaints. Feeling comfortable with epidural. Objective: Cervical exam: 4.5/75/-1 Consistency: Soft Position: Anterior Presentation: Vertex heart tones: 140 beats per minute, moderate variability, reactive Tocometer: Not picking up contractions well while on her side Assessment/Plan: Teresa Chiu is a 20 /Para 2 / 0,Gestational Age (wks)39 here for IOL. AROM done with clear fluid. CEFM/TOCO Continue pitocin Anesthesia: Epidural Anticipate vaginal delivery. Vitals - Labs Vital Signs - I&O Vital Signs Date Time Temp Pulse Resp B/P (MAP) Pulse Ox O2 Delivery O2 Flow Rate FiO2 11/01/20 11:15 Room Air 11/01/20 11:00 125 18 108/68 (81) 98 Room Air 11/01/20 10:45 107 18 123/68 (86) 100 Room Air 11/01/20 10:30 109 18 124/65 (84) 100 Room Air 11/01/20 10:15 112 18 126/66 (86) 100 Room Air 11/01/20 10:00 118 18 121/62 (81) 100 Room Air 11/01/20 09:55 100 18 120/61 (80) 100 Room Air 11/01/20 09:50 82 18 120/63 (82) 100 Room Air 11/01/20 09:47 99 18 121/58 (79) 100 Room Air 11/01/20 09:45 112 18 116/63 (80) 100 Room Air 11/01/20 09:40 100 18 128/64 (85) 100 Room Air 11/01/20 09:35 109 18 114/63 (80) 100 Room Air 11/01/20 09:31 123 18 113/63 (80) 100 Room Air 11/01/20 09:30 101 18 113/59 (77) 100 Room Air 11/01/20 09:25 116 18 107/63 (78) 100 Room Air 11/01/20 09:22 109 18 103/60 (74) 100 Room Air 11/01/20 09:19 122 18 113/62 (79) 100 Room Air 11/01/20 09:15 90 18 110/61 (77) Room Air 11/01/20 09:13 92 18 102/55 (71) 100 Room Air 11/01/20 09:10 103 18 99/58 (72) 100 Room Air 11/01/20 09:00 86 18 105/56 (72) Room Air 11/01/20 08:45 91 18 110/56 (74) Room Air 11/01/20 08:30 36.9 96 18 115/58 (77) Room Air 11/01/20 08:15 Room Air 11/01/20 08:00 Room Air 11/01/20 07:30 36.1 106 18 127/63 (84) 99 Room Air 11/01/20 07:10 36.1 106 18 99 Room Air Labs Laboratory Tests 11/01/20 07:25: White Blood Count 14.2H, Red Blood Count 3.53L, Hemoglobin 8.5L, Hematocrit 27L, Mean Corpuscular Volume 77L, Mean Corpuscular Hemoglobin 24L, Mean Corpuscular Hemoglobin Concent 31L, Red Cell Distribution Width 16.3H, Platelet Count 263, Mean Platelet Volume 12.1, Immature Granulocyte % (Auto) 1, Neutrophils (%) (A uto) 76H, Lymphocytes (%) (Auto) 15, Monocytes (%) (Auto) 7, Eosinophils (%) (Auto) 1, Basophils (%) (Auto) 1, Neutrophils # (Auto) 10.8H, Lymphocytes # (Auto) 2.1, Monocytes # (Auto) 1.0, Eosinophils # (Auto) 0.2, Basophils # (Auto) 0.1, Immature Granulocyte # (Auto) 0.1, Neutrophils % (Manual) 74, Lymphocytes % (Manual) 15, Monocytes % (Manual) 8, Eosinophils % (Manual) 1, Basophils % (Manual) 0, Band Neutrophils 2, Anisocytosis SLIGHT, Microcytosis SLIGHT 11/01/20 10:50: MANUELITO RODRIGUES MD Nov 01, 2020 12:33
[2020-11-01] MEDS ORDERED: CATHETER FLUSH 10 ML SYR IV SCH ×2 (14:00→22:00)
[2020-11-01] MEDS ORDERED: MISOPROSTOL 200 MCG (CYTOTEC) TABLET ONE (18:01)
--- NOTE | 2020-11-01 19:05 | OB Labor & Delivery Record ---
Vag Delivery Note Vag Delivery Note Date of Delivery: 11/01/20 Preoperative Diagnosis: Teresa Chiu is a 20 /Para 2 / 0, Gestational Age (wks)39with 0 days Postoperative Diagnosis: Same Surgeon: MANUELITO RODRIGUES Bilingual Account Manager: Tala Lorenzo, MS3 Anesthesia: Epidural Delivery Type: Vacuum assisted vaginal delivery Findings: Viable male , apgars 8/9, weight 7#3 Lacerations: bilateral periurethral laceration Intact placenta with 3 vessel cord. No nuchal cord, body cord or shoulder dy stocia Cytotec 800 mcg placed for hemorrhage prophylaxis Estimated Blood Loss: 400 ml Complications: None Condition: Stable Description of Procedure: The patient is a 20 year old female who presented for induction of labor. She was admitted and informed consent was obtained. Her labor course was unremarkable. She progressed to complete dilatation and began to push. She was then set up for delivery. Although there was good maternal pushing effort and at near , the began to have prolonged bradycardia (starting at 1753) before delivery so decision was made to proceed with vacuum extraction. At 1757 Mity-Vac was applied to head 3 cm posterior to the anterior fontanelle, and the edge of the cup was swept to ensure no maternal tissue entrapment. Pressure was raised to 45 cmHg and with the next contraction and in coordination with maternal pushing effort, the infant's head was delivered with 5 push/pulls at 1759. The 's head was delivered atraumatically in the OA position. The shoulders and remainder of the infant's body were then delivered without difficulty. Upon delivery, the head was held below the level of the perineum and the mouth and nares were bulb suctioned. The cord was doubly clamped and cut and the infant was handed off to the pediatric staff. An intact placenta with 3-vessel cord delivered via Emil and there was found to be minimal bleeding.~ Vigorous fundal massage was performed and the fundus was found to be somewhat boggy so cytotec 800 mcg wsa given rectally in addition to IV oxytocin. Examination of the vagina and perineum revealed bilateral periurethral lacerations repaired in the simple running fashion with 3-0 vicryl rapide suture. Following the repair, sponge, instrument and needle counts were correct. Mom and baby were both in stable condition in the labor suite. Vitals - Labs Vital Signs - I&O Vital Signs Date Time Temp Pulse Resp B/P (MAP) Pulse Ox O2 Delivery O2 Flow Rate FiO2 11/01/20 16:00 83 18 106/58 (74) Room Air 11/01/20 15:45 90 18 111/70 (84) Room Air 11/01/20 15:30 107 18 111/70 (84) Room Air 11/01/20 15:15 97 18 111/71 (84) Room Air 11/01/20 15:00 91 18 108/60 (76) Room Air 11/01/20 14:45 105 18 125/84 (98) Room Air 11/01/20 14:30 88 18 114/66 (82) Room Air 11/01/20 14:15 83 18 115/64 (81) Room Air 11/01/20 14:00 Room Air 11/01/20 13:45 93 18 119/55 (76) 100 Room Air 11/01/20 13:30 92 18 120/56 (77) 100 Room Air 11/01/20 13:15 114 18 113/56 (75) 100 Room Air 11/01/20 13:00 100 18 104/59 (74) 100 Room Air 11/01/20 12:45 90 18 110/56 (74) 100 Room Air 11/01/20 12:30 102 18 114/56 (75) 99 Room Air 11/01/20 12:15 113 18 111/61 (78) 97 Room Air 11/01/20 12:00 96 18 105/59 (74) 97 Room Air 11/01/20 11:45 105 18 103/57 (72) 98 Room Air 11/01/20 11:30 35.6 106 18 107/61 (76) 98 Room Air 11/01/20 11:15 Room Air 11/01/20 11:00 125 18 108/68 (81) 98 Room Air 11/01/20 10:45 107 18 123/68 (86) 100 Room Air 11/01/20 10:30 109 18 124/65 (84) 100 Room Air 11/01/20 10:15 112 18 126/66 (86) 100 Room Air 11/01/20 10:00 118 18 121/62 (81) 100 Room Air 11/01/20 09:55 100 18 120/61 (80) 100 Room Air 11/01/20 09:50 82 18 120/63 (82) 100 Room Air 11/01/20 09:47 99 18 121/58 (79) 100 Room Air 11/01/20 09:45 112 18 116/63 (80) 100 Room Air 11/01/20 09:40 100 18 128/64 (85) 100 Room Air 11/01/20 09:35 109 18 114/63 (80) 100 Room Air 11/01/20 09:31 123 18 113/63 (80) 100 Room Air 11/01/20 09:30 101 18 113/59 (77) 100 Room Air 11/01/20 09:25 116 18 107/63 (78) 100 Room Air 11/01/20 09:22 109 18 103/60 (74) 100 Room Air 11/01/20 09:19 122 18 113/62 (79) 100 Room Air 11/01/20 09:15 90 18 110/61 (77) Room Air 11/01/20 09:13 92 18 102/55 (71) 100 Room Air 11/01/20 09:10 103 18 99/58 (72) 100 Room Air 11/01/20 09:00 86 18 105/56 (72) Room Air 11/01/20 08:45 91 18 110/56 (74) Room Air 11/01/20 08:30 36.9 96 18 115/58 (77) Room Air 11/01/20 08:15 Room Air 11/01/20 08:00 Room Air 11/01/20 07:30 36.1 106 18 127/63 (84) 99 Room Air 11/01/20 07:10 36.1 106 18 99 Room Air Labs Laboratory Tests 11/01/20 07:25: White Blood Count 14.2H, Red Blood Count 3.53L, Hemoglobin 8.5L, Hematocrit 27L, Mean Corpuscular Volume 77L, Mean Corpuscular Hemoglobin 24L, Mean Corpuscular Hemoglobin Concent 31L, Red Cell Distribution Width 16.3H, Platelet Count 263, Mean Platelet Volume 12.1, Immature Granulocyte % (Auto) 1, Neutrophils (%) (Auto) 76H, Lymphocytes (%) (Auto) 15, Monocytes (%) (Auto) 7, Eosinophils (%) (Auto) 1, Basophils (%) (Auto) 1, Neutrophils # (Auto) 10.8H, Lymphocytes # (Auto) 2.1, Monocytes # (Auto) 1.0, Eosinophils # (Auto) 0.2, Basophils # (Auto) 0.1, Immature Granulocyte # (Auto) 0.1, Neutrophils % (Manual) 74, Lymphocytes % (Manual) 15, Monocytes % (Manual) 8, Eosinophils % (Manual) 1, Basophils % (Manual) 0, Band Neutrophils 2, Anisocytosis SLIGHT, Microcytosis SLIGHT 11/01/20 10:50: MANUELITO RODRIGUES MD Nov 01, 2020 19:05
[2020-11-01] MEDS ORDERED: TETANUS,DIPTH,PERTUSS P/F (BOOSTRIX) 0.5 ML VIAL IM ONE (19:15)
[2020-11-01] MEDS ORDERED: WITCH HAZEL(TUCKS) 40 EA JAR TOP PRN (19:15)
[2020-11-01] MEDS ORDERED: BENZOCAINE/MENTHOL (DERMOPLAST) 60 ML CAN TP PRN (19:15)
[2020-11-01] MEDS ORDERED: MEASLES,MUMPS,RUBELLA 1 EA INJ SQ ONE (19:15)
[2020-11-01] MEDS ORDERED: OXYTOCIN PRE-MIX DRIP 500 ML IV SCH (19:15)
[2020-11-01] MEDS ORDERED: MISOPROSTOL 200 MCG (CYTOTEC) TABLET PO ONE (19:15)
[2020-11-01] MEDS ORDERED: IBUPROFEN 600 MG (MOTRIN) TAB PO ONE (20:41)
[2020-11-01] MEDS: IBUPROFEN 600 MG (MOTRIN) TAB PO SCH (21:02)
[2020-11-01] MEDS: DOCUSATE SODIUM 100 MG (COLACE) CAP PO SCH (21:02)
[2020-11-02] MEDS ORDERED: IBUPROFEN 600 MG (MOTRIN) TAB PO ONE ×3 (02:19→15:35)
[2020-11-02 02:30] VITALS: BP 97/54
[2020-11-02] MEDS: IBUPROFEN 600 MG (MOTRIN) TAB PO SCH ×4 (03:36→21:13)
[2020-11-02 06:47] LABS: BASOPHILS # (AUTO) 0.1 10^3/uL (0.0-0.1); BASOPHILS % (AUTO) 0 % (0-10); EOSINOPHILS # (AUTO) 0.1 10^3/uL (0.0-0.3); EOSINOPHILS % (AUTO) 0 % (0-10); HEMATOCRIT 24 % (35-52); HEMOGLOBIN 7.4 g/dL (11.5-16.0); LYMPHOCYTES # (AUTO) 1.8 10^3/uL (1.0-4.0); LYMPHOCYTES % (AUTO) 10 % (12-44); MEAN CORPUSCULAR HEMOGLOBIN 24 pg (25-34); MEAN CORPUSCULAR HGB CONC 31 g/dL (32-36); MEAN CORPUSCULAR VOLUME 77 fL (80-99); MEAN PLATELET VOLUME 11.7 fL (9.0-12.2); MONOCYTES # (AUTO) 1.5 10^3/uL (0.0-1.0); MONOCYTES % (AUTO) 8 % (0-12); NEUTROPHILS # (AUTO) 14.3 10^3/uL (1.8-7.8); NEUTROPHILS % (AUTO) 80 % (42-75); PLATELET COUNT 196 10^3/uL (130-400); WHITE BLOOD COUNT 17.8 10^3/uL (4.3-11.0)
--- NOTE | 2020-11-02 08:05 | Anesthesia-General Post-Op ---
General Patient Condition Mental Status/LOC: Same as Preop Cardiovascular: Satisfactory Nausea/Vomiting: Absent Respiratory: Satisfactory Pain: Controlled Complications: Absent Post Op Complications Complications None Follow Up Care/Instructions Patient Instructions None needed. Anesthesia/Patient Condition Patient Condition Patient is doing well, no complaints, stable vital signs, no apparent adverse anesthesia problems. Her bolus doses of bupivicaine through the epidural catheter were helpful and pain was much improved after. DOM TAMEZ DO Nov 02, 2020 08:05
[2020-11-02 09:35] VITALS: BP 112/57
--- NOTE | 2020-11-02 11:20 | Progress Note ---
Subjective Subjective/Events-last exam Afebrile, denies concerns. Denies chest pain, shortness of breath or dizziness. Objective Exam Last Set of Vital Signs Vital Signs Date Time Temp Pulse Resp B/P (MAP) Pulse Ox O2 Delivery O2 Flow Rate FiO2 11/02/20 09:35 36.6 102 18 112/57 (75) 98 Room Air Capillary Refill : Less Than 3 Seconds I&O Intake and Output 11/02/20 00:00 Intake Total 3129.6 ml Balance 3129.6 ml Intake IV Total 3129.6 ml Daily Weight Change No General: Alert, No Acute Distress Lungs: Clear to Auscultation, Normal Air Movement Heart: Regular Rate, No Murmurs Extremities: No Edema Neuro: Normal Speech Psych/Mental Status: Mood NL Results/Procedures Lab Laboratory Tests 11/02/20 06:02: White Blood Count 17.8H, Red Blood Count 3.11L, Hemoglobin 7.4L, Hematocrit 24L, Mean Corpuscular Volume 77L, Mean Corpuscular Hemoglobin 24L, Mean Corpuscular Hemoglobin Concent 31L, Red Cell Distribution Width 16.5H, Platelet Count 196, Mean Platelet Volume 11.7, Immature Granulocyte % (Auto) 1, Neutrophils (%) (Auto) 80H, Lymphocytes (%) (Auto) 10L, Monocytes (%) (Auto) 8, Eosinophils (%) (Auto) 0, Basophils (%) (Auto) 0, Neutrophils # (Auto) 14.3H, Lymphocytes # (Auto) 1.8, Monocytes # (Auto) 1.5H, Eosinophils # (Auto) 0.1, Basophils # (Auto) 0.1, Immature Granulocyte # (Auto) 0.1 Assessment/Plan Assessment/Plan (1) Status post vacuum-assisted vaginal delivery Status: Acute Assessment & Plan: Continue routine care (2) Acute blood loss anemia Status: Acute Assessment & Plan: Asymptomatic, treat with ferrous sulfate. MANUELITO RODRIGUES MD Nov 02, 2020 11:20
[2020-11-02] MEDS ORDERED: FERR325T18 PO (12:04)
[2020-11-02] MEDS ORDERED: IBUP-844 PO (12:04)
[2020-11-02 12:27] VITALS: BP 93/52
[2020-11-02 17:12] VITALS: BP 104/55
[2020-11-02] MEDS: DOCUSATE SODIUM 100 MG (COLACE) CAP PO SCH (18:51)
[2020-11-02 21:10] VITALS: BP 97/54
[2020-11-03 02:30] VITALS: BP 113/65
[2020-11-03] MEDS: IBUPROFEN 600 MG (MOTRIN) TAB PO SCH ×2 (02:30→08:28)
[2020-11-03] MEDS: DOCUSATE SODIUM 100 MG (COLACE) CAP PO SCH ×2 (02:49→08:28)
--- NOTE | 2020-11-03 06:58 | Discharge Summary ---
Discharge Summary Hospital Course Problems Reviewed?: Yes Problems/Diagnosis: (1) Status post vacuum-assisted vaginal delivery Status: Acute Assessment & Plan: Continue routine care (2) Acute blood loss anemia Status: Acute Assessment & Plan: Asymptomatic, treat with ferrous sulfate. Hospital Course Date of Admission: Nov 01, 2020 at 06:14 Admission Diagnosis : Family Physician/Provider: Selina,Local Physician Date of Discharge: 11/03/20 Discharge Diagnosis: s/p vacuum assisted vaginal delivery over intact perineum acute blood loss anemia Hospital Course: Pt was admitted for elective IOL at term and had unremarkable labor course, fully treated for GBS carriage and delivered via vacuum assisted vaginal delivery due to bradycardia. course unremarkable. Labs and Pending Lab Test: Home Meds Active Ibu (Ibuprofen) 600 Mg Tablet 600 Mg PO Q6H PRN Ferrous Sulfate 325 Mg Tablet 325 Mg PO DAILY@0700 Reported Gummies (Lzd431/FA/Omega3/Dha/Fish Oil) 1 Each Tab.chew 1 Each PO DAILY Assessment/Pt DC Instructions Follow up with Dr. Roberts in 6 weeks for visit. Discharge Diet: Regular Diet Activity as Tolerated: Yes (avoid strenuous activity x 6 weeks) Discharge Physical Examination Allergies: Coded Allergies: latex (Verified Allergy, Mild, rash, 11/01/20) diphenhydramine (Verified Allergy, Unknown, Rash, 11/01/20) FROM THE DYE, CAN TAKE BENADRYL WITHOUT DYE General Appearance: No Apparent Distress, WD/WN Respiratory: Lungs Clear, Normal Breath Sounds Cardiovascular: Regular Rate, Rhythm, No Murmur Skin: Normal Color, Warm/Dry Neurologic/Psychiatric: Normal Mood/Affect MANUELITO ROBERTS MD Nov 03, 2020 06:58
[2020-11-03] MEDS ORDERED: FERROUS SULF 325 MG (IRON) TAB PO SCH (07:00)
[2020-11-03 07:50] VITALS: BP 101/60
[2020-11-03 12:00] VITALS: BP 102/55
== END 2020-11-03 14:40 | disposition home or self-care (01) | DRG 806 ==
LOC: LDRP 06:14
PROVIDERS: ADMIT Family Medicine; ATTEND Family Medicine
PROC: 10D07Z6 Extraction of Products of Conception, Vacuum, Via Natural or Artificial Opening (ICD-10-PCS; principal; 2020-11-01)
PROC: 10907ZC Drainage of Amniotic Fluid, Therapeutic from Products of Conception, Via Natural or Artificial Opening (ICD-10-PCS; 2020-11-01)
PROC: 0UQMXZZ Repair Vulva, External Approach (ICD-10-PCS; 2020-11-01)
DX: O76 Abnormality in fetal heart rate and rhythm complicating labor and delivery (principal); D62 Acute posthemorrhagic anemia; Z37.0 Single live birth; O99.334 Smoking (tobacco) complicating childbirth; F17.210 Nicotine dependence, cigarettes, uncomplicated; Z3A.39 39 weeks gestation of pregnancy; O71.82 Other specified trauma to perineum and vulva; O90.81 Anemia of the puerperium; O99.824 Streptococcus B carrier state complicating childbirth; Z20.822 Contact with and (suspected) exposure to COVID-19
CPT/HCPCS: 36415; 85007; 85025; 85027; 86780; 86850; 86900; 86901; 87635

== ENCOUNTER 2022-06-17 17:22 | Emergency (ER) | payer MEDICAID ==
[~2022-06-17] VITALS: Ht 149 cm; Wt 39.9 kg
[~2022-06-17 17:22] MED LIST changes: +FERR325T18 PO; +IBUP-844 PO; +PNV11TAB5 PO
--- NOTE | 2022-06-17 18:01 | ED General ---
General Chief Complaint: General Problems/Pain Stated Complaint: COUGH, SHORTNESS OF BREATH, MENSTRAL BLEEDING Nursing Triage Note: ARRIVED VIA AMB TO ROOM 10 WITH COMPLAINTS OF A COUGH X5-6 DAY. PT ALSO STATES SHE HAS HAD VAGINAL BLEEDING AND WT LOSS SINCE OCTOBER. PT STATES AT THE BEG OF OCTOBER SHE WEIGHED 115 AND NOW WEIGHS 88 POUNDS. Source of Information: Patient Exam Limitations: No Limitations History of Present Illness Date Seen by Provider: Jun 17, 2022 Time Seen by Provider: 17:59 Initial Comments To ER with 1 week history of a productive cough and chills. She does smoke cigarettes. No measured fevers. No nausea. She is also had vaginal bleeding every time she urinates she soaks a menstrual pad since October of this year. At that time she received her first Depo-Provera injection and has been bleeding like this ever since. She has an appointment scheduled with Dr. Rodrigues next month. Timing/Duration: 1 Week, Getting Worse Severity: Moderate Associated Systoms: Denies Symptoms Allergies and Home Medications Allergies Coded Allergies: latex (Verified Allergy, Mild, rash, 11/01/20) diphenhydramine (Verified Allergy, Unknown, Rash, 11/01/20) FROM THE DYE, CAN TAKE BENADRYL WITHOUT DYE Patient Home Medication List Home Medication List Reviewed: Yes Ferrous Sulfate (Ferrous Sulfate) 325 Mg Tablet, 325 MG PO DAILY@0700 Prescribed by: MANUELITO RODRIGUES on 11/02/20 1204 Ibuprofen (Ibu) 600 Mg Tablet, 600 MG PO Q6H PRN for PAIN-MODERATE (5-7) Prescribed by: MANUELITO RODRIGUES on 11/02/20 1204 Fod470/FA/Omega3/Dha/Fish Oil ( Gummies) 1 Each Tab.chew, 1 EACH PO DAILY, (Reported) Entered as Reported by: HUSSAIN LEACH on 11/01/20 0811 Review of Systems Review of Systems Constitutional: see HPI EENTM: see HPI, hoarseness Respiratory: see HPI, cough, phlegm Cardiovascular: no symptoms reported Genitourinary: see HPI, discharge Musculoskeletal: no symptoms reported Skin: no symptoms reported Psychiatric/Neurological: No Symptoms Reported Hematologic/Lymphatic: No Symptoms Reported Past Vajbqwx-Vphtfk-Vkwfzw Hx Patient Social History Tobacco Use?: Yes Smoking Status: Current Everyday Smoker Substance use?: No Alcohol Use?: No Immunizations Up To Date Tetanus Booster (TDap): Less than 5yrs First/Initial COVID19 Vaccinat: UNKNOWN COVID19 Vaccine Behavior Specialist: UNKNOWN Seasonal Allergies Seasonal Allergies: No Past Medical History Surgeries: No Respiratory: No Cardiac: No Neurological: No Reproductive Disorders: No Sexually Transmitted Disease: No Genitourinary: No Gastrointestinal: No Musculoskeletal: No Endocrine: No HEENT: No Cancer: No Psychosocial: Yes ADD/ADHD, Anxiety, Bipolar, Depression Integumentary: No Blood Disorders: No Adverse Reaction/Blood Tranf: No Family Medical History Cancer, Diabetes, Hypertension Physical Exam Vital Signs Vital Signs - First Documented 06/17/22 17:30 Temp 36.3 Pulse 117 Resp 16 B/P (MAP) 111/91 (98) Pulse Ox 95 O2 Delivery Room Air Capillary Refill : Less Than 3 Seconds Height, Weight, BMI Height: 5'0" Weight: 91lbs. 5.0oz. [id number]; 17.00 BMI Method:Stated General Appearance: No Apparent Distress, WD/WN, Thin, Other (Tachycardic at 120) Eyes: Bilateral Eye Normal Inspection, Bilateral Eye PERRL HEENT: PERRL/EOMI, TMs Normal, Pharyngeal Erythema Neck: Full Range of Motion, Normal Inspection Respiratory: No Accessory Muscle Use, No Respiratory Distress Cardiovascular: Normal Peripheral Pulses, Tachycardia Gastrointestinal: Normal Bowel Sounds, Non Tender, Soft Extremity: Normal Capillary Refill, Normal Inspection Neurologic/Psychiatric: Alert, Oriented x3, No Motor/Sensory Deficits Skin: Normal Color, Warm/Dry Progress/Results/Core Measures Suspected Sepsis SIRS Temperature: Pulse: 117 Respiratory Rate: 16 Laboratory Tests 06/17/22 17:50: White Blood Count 9.1 Blood Pressure 111 /91 Mean: 98 Laboratory Tests 06/17/22 17:50: Creatinine 0.73, Platelet Count 413H, Total Bilirubin 0.4 Results/Orders Lab Results Laboratory Tests Test 06/17/22 17:35 06/17/22 17:50 Range/Units Influenza Type A (RT-PCR) Not Detected Not Detecte Influenza Type B (RT-PCR) Not Detected Not Detecte SARS-CoV-2 RNA (RT-PCR) Not Detected Not Detecte White Blood Count 9.1 4.3-11.0 10^3/uL Red Blood Count 4.99 3.80-5.11 10^6/uL Hemoglobin 12.8 11.5-16.0 g/dL Hematocrit 40 35-52 % Mean Corpuscular Volume 80 80-99 fL Mean Corpuscular Hemoglobin 26 25-34 pg Mean Corpuscular Hemoglobin Concent 32 32-36 g/dL Red Cell Distribution Width 15.8 H 10.0-14.5 % Platelet Count 413 H 130-400 10^3/uL Mean Platelet Volume 11.4 9.0-12.2 fL Immature Granulocyte % (Auto) 0 % Neutrophils (%) (Auto) 68 42-75 % Lymphocytes (%) (Auto) 19 12-44 % Monocytes (%) (Auto) 9 0-12 % Eosinophils (%) (Auto) 3 0-10 % Basophils (%) (Auto) 1 0-10 % Neutrophils # (Auto) 6.2 1.8-7.8 10^3/uL Lymphocytes # (Auto) 1.7 1.0-4.0 10^3/uL Monocytes # (Auto) 0.8 0.0-1.0 10^3/uL Eosinophils # (Auto) 0.3 0.0-0.3 10^3/uL Basophils # (Auto) 0.1 0.0-0.1 10^3/uL Immature Granulocyte # (Auto) 0.0 0.0-0.1 10^3/uL Urine Color ORANGE Urine Clarity CLOUDY Urine pH 5.0 5-9 Urine Specific [place] >=1.030 1.016-1.022 Urine Protein 1+ H NEGATIVE Urine Glucose (UA) NEGATIVE NEGATIVE Urine Ketones NEGATIVE NEGATIVE Urine Nitrite NEGATIVE NEGATIVE Urine Bilirubin 1+ H NEGATIVE Urine Urobilinogen 1.0 < = 1.0 MG/DL Urine Leukocyte Esterase NEGATIVE NEGATIVE Urine RBC (Auto) 3+ H NEGATIVE Urine RBC >100 H /HPF Urine WBC 10-25 H /HPF Urine Squamous Epithelial Cells 10-25 H /HPF Urine Crystals NONE /LPF Urine Bacteria FEW H /HPF Urine Casts NONE /LPF Urine Mucus MODERATE H /LPF Urine Culture Indicated YES Sodium Level 139 135-145 MMOL/L Potassium Level 3.8 3.6-5.0 MMOL/L Chloride Level 102 98-107 MMOL/L Carbon Dioxide Level 24 21-32 MMOL/L Anion Gap 13 5-14 MMOL/L Blood Urea Nitrogen 11 7-18 MG/DL Creatinine 0.73 0.60-1.30 MG/DL Estimat Glomerular Filtration Rate 118 BUN/Creatinine Ratio 15 Glucose Level 101 70-105 MG/DL Calcium Level 9.7 8.5-10.1 MG/DL Corrected Calcium 9.4 8.5-10.1 MG/DL Total Bilirubin 0.4 0.1-1.0 MG/DL Aspartate Amino Transf (AST/SGOT) 47 H 5-34 U/L Alanine Aminotransferase (ALT/SGPT) 58 H 0-55 U/L Alkaline Phosphatase 114 40-136 U/L Total Protein 8.3 H 6.4-8.2 GM/DL Albumin 4.4 3.2-4.5 GM/DL Thyroid Stimulating Hormone (TSH) 1.12 0.35-4.94 UIU/ML Free Thyroxine 1.15 0.70-1.48 NG/DL Serum Test, Qualitative NEGATIVE NEGATIVE Urine Opiates Screen NEGATIVE NEGATIVE Urine Oxycodone Screen NEGATIVE NEGATIVE Urine Methadone Screen NEGATIVE NEGATIVE Urine Propoxyphene Screen NEGATIVE NEGATIVE Urine Barbiturates Screen NEGATIVE NEGATIVE Ur Tricyclic Antidepressants Screen NEGATIVE NEGATIVE Urine Phencyclidine Screen NEGATIVE NEGATIVE Urine Amphetamines Screen NEGATIVE NEGATIVE Urine Methamphetamines Screen NEGATIVE NEGATIVE Urine Benzodiazepines Screen NEGATIVE NEGATIVE Urine Cocaine Screen NEGATIVE NEGATIVE Urine Cannabinoids Screen POSITIVE H NEGATIVE My Orders Orders - STEWART PETERSEN APRN Comprehensive Metabolic Panel (06/17/22 17:42) Cbc With Automated Diff (06/17/22 17:42) Thyroid Stimulating Hormone (06/17/22 17:42) Neisseria Gonorrhea Swab (06/17/22 17:42) Ua Culture If Indicated (06/17/22 17:42) Free T4 (Free Thyroxine) (06/17/22 17:42) Covid 19 Inhouse Test (06/17/22 17:42) Influenza A And B By Pcr (06/17/22 17:42) Hcg,Qualitative Serum (06/17/22 17:42) Chest 1 View, Ap/Pa Only (06/17/22 17:42) Wet Prep (06/17/22 17:42) Genital Culture (06/17/22 17:42) Chlamydia Trachomatis Swab (06/17/22 17:42) Drug Screen Stat (Urine) (06/17/22 17:52) Urine Culture (06/17/22 17:50) Vital Signs/I&O 06/17/22 17:30 Temp 36.3 Pulse 117 Resp 16 B/P (MAP) 111/91 (98) Pulse Ox 95 O2 Delivery Room Air Capillary Refill : Less Than 3 Seconds Blood Pressure Mean: 98 Departure Communication (Admissions) NAME: TANO MCKEON [facility] REC#: [id number] PT STATUS: REG ER : 2000 PHYSICIAN: STEWART PETERSEN APRN ADMIT DATE: 06/17/22/ER Draft Date of Exam:06/17/22 CHEST 1 VIEW, AP/PA ONLY INDICATION: Cough 5-6 days. Patient has lost significant amount of weight since October. EXAMINATION: Single view chest 06/17/2022 FINDINGS: There is a focal infiltrate at the left lung base adjacent to the left heart border. Remaining lungs clear. No effusions. No pneumothorax. Heart and pulmonary vasculature normal. IMPRESSION: 1. Focal density in the left lung base somewhat rounded in nature. This most likely represents a round pneumonia. However, given history of weight loss if this does not resolve, CT recommended to exclude a mass. Dictated on workstation # [id number] Dict: 06/17/22 1829 Trans: 06/17/22 1833 [id number] Interpreted by: MARIANNA SHETH MD Electronically signed by: Impression Primary Impression: Pneumonia Additional Impression: Menorrhagia Disposition: 01 HOME, SELF-CARE Condition: Stable Departure-Patient Inst. Decision time for Depature: 19:31 Referrals: MANUELITO RODRIGUES MD (PCP/Family) Primary Care Physician Patient Instructions: Heavy Periods Add. Discharge Instructions: 1. Antibiotics as directed. Steroids as directed. Take the Provera medication to help slow bleeding. All discharge instructions reviewed with patient and/or family. Voiced understanding. Scripts Amoxicillin/Potassium Clav (Amox Tr-K Clv 875-125 mg Tab) 875 Mg-125 Mg Tablet 1 EACH PO BID, #14 TAB Prov: STEWART PETERSEN APRN 06/17/22 Prednisone (Prednisone) 20 Mg Tab 40 MG PO DAILY, #6 TAB 0 Refills Prov: STEWART PETERSEN APRN 06/17/22 Medroxyprogesterone Acetate (Medroxyprogesterone Acetate) 10 Mg Tablet 10 MG PO DAILY, #7 TAB Prov: STEWART PETERSEN APRN 06/17/22 STEWART PETERSEN APRN Jun 17, 2022 18:01
[2022-06-17 18:07] LABS: BASOPHILS # (AUTO) 0.1 10^3/uL (0.0-0.1); BASOPHILS % (AUTO) 1 % (0-10); EOSINOPHILS # (AUTO) 0.3 10^3/uL (0.0-0.3); EOSINOPHILS % (AUTO) 3 % (0-10); HEMATOCRIT 40 % (35-52); HEMOGLOBIN 12.8 g/dL (11.5-16.0); LYMPHOCYTES # (AUTO) 1.7 10^3/uL (1.0-4.0); LYMPHOCYTES % (AUTO) 19 % (12-44); MEAN CORPUSCULAR HEMOGLOBIN 26 pg (25-34); MEAN CORPUSCULAR HGB CONC 32 g/dL (32-36); MEAN CORPUSCULAR VOLUME 80 fL (80-99); MEAN PLATELET VOLUME 11.4 fL (9.0-12.2); MONOCYTES # (AUTO) 0.8 10^3/uL (0.0-1.0); MONOCYTES % (AUTO) 9 % (0-12); NEUTROPHILS # (AUTO) 6.2 10^3/uL (1.8-7.8); NEUTROPHILS % (AUTO) 68 % (42-75); PLATELET COUNT 413 10^3/uL (130-400); WHITE BLOOD COUNT 9.1 10^3/uL (4.3-11.0)
[2022-06-17 18:23] LABS: ALBUMIN 4.4 GM/DL (3.2-4.5)
[2022-06-17 18:24] LABS: POTASSIUM 3.8 MMOL/L (3.6-5.0)
[2022-06-17 18:25] LABS: CALCIUM 9.7 MG/DL (8.5-10.1)
[2022-06-17 18:26] LABS: TOTAL PROTEIN 8.3 GM/DL (6.4-8.2)
[2022-06-17 18:28] LABS: BILIRUBIN,TOTAL 0.4 MG/DL (0.1-1.0); CLARITY,URINE CLOUDY; COLOR,URINE ORANGE; GLUCOSE, URINE (UA) NEGATIVE (NEGATIVE); KETONES,URINE NEGATIVE (NEGATIVE); LEUKOCYTE ESTERASE ,URINE NEGATIVE (NEGATIVE); NITRITE,URINE NEGATIVE (NEGATIVE); PROTEIN,URINE 1+ (NEGATIVE)
[2022-06-17 18:30] LABS: CREATININE SERUM 0.73 MG/DL (0.60-1.30)
--- NOTE | 2022-06-17 18:34 | Diagnostic Imaging Report ---
INDICATION: Cough 5-6 days. Patient has lost significant amount of weight since October. EXAMINATION: Single view chest 06/17/2022 FINDINGS: There is a focal infiltrate at the left lung base adjacent to the left heart border. Remaining lungs clear. No effusions. No pneumothorax. Heart and pulmonary vasculature normal. IMPRESSION: 1. Focal density in the left lung base somewhat rounded in nature. This most likely represents a round pneumonia. However, given history of weight loss if this does not resolve, CT recommended to exclude a mass. Dictated by: Dictated on workstation # [id number]
[2022-06-17 18:39] LABS: AMPHETAMINE SCREEN, URINE NEGATIVE (NEGATIVE); BARBITURATE SCREEN URINE NEGATIVE (NEGATIVE); BENZODIAZEPINES SCREEN URINE NEGATIVE (NEGATIVE); CANNABINOID SCREEN, URINE POSITIVE (NEGATIVE); COCAINE SCREEN URINE NEGATIVE (NEGATIVE); METHADONE STAT NEGATIVE (NEGATIVE); OPIATE SCREEN URINE NEGATIVE (NEGATIVE); OXYCODONE STAT NEGATIVE (NEGATIVE); PROPOXYPHENE STAT NEGATIVE (NEGATIVE); TRICYCLIC ANTIDEPRESSANTS SCRE NEGATIVE (NEGATIVE)
[2022-06-17 18:42] LABS: BACTERIA,URINE FEW /HPF; BILIRUBIN,URINE 1+ (NEGATIVE); RBC,URINE >100 /HPF
[2022-06-17 18:53] LABS: FREE T4 (FREE THYROXINE) 1.15 NG/DL (0.70-1.48)
[2022-06-17] MEDS ORDERED: MEDR10TA9 PO (19:32)
[2022-06-17] MEDS ORDERED: PRD20T PO (19:33)
[2022-06-17] MEDS ORDERED: AMOX1TAB12 PO (19:34)
[2022-06-17] MEDS ORDERED: AUGMENTIN 875 MG TAB (AMOXICILLIN/CLAVULANATE) PO SCH (19:45)
[2022-06-17 19:59] VITALS: BP 102/67
== END 2022-06-17 20:00 | disposition home or self-care (01) ==
LOC: EDUNIT# 17:22 → ER 17:24
DX: J18.9 Pneumonia, unspecified organism (principal); N92.0 Excessive and frequent menstruation with regular cycle; F17.210 Nicotine dependence, cigarettes, uncomplicated; Z91.040 Latex allergy status; Z28.311 Partially vaccinated for COVID-19
CPT/HCPCS: 36415; 71045; 80053; 80306; 81000; 84439; 84443; 84703; 85025; 87070; 87077; 87088; 87205; 87210; 87491; 87591; 87636